=== PATIENT | male | born 1990 | race Caucasian/White ===

== ENCOUNTER 2022-05-25 00:58 | Emergency (ER) | payer BC, SELFPAY ==
[2022-05-25 01:02] VITALS: BP 166/99; PULSE 60; RESP 16; TEMP 37.1; O2SAT 100
--- NOTE | 2022-05-25 01:14 | ED.GENADUL_ITS ---
Discharge Plan Disposition Patient Disposition: Home Discharge Details Clinical Impression: Dental implant pain ED Provider: Tyshawn Demarco Discharge Instructions Additional Instructions: At this time the CAT scan of your head shows no tumor, mass, abscess or other significant abnormality. As we discussed I am concerned that there may be a component of your nerve being irritated from where the original root canal was. I cannot see any other evidence of significant cause on exam otherwise. Please continue to take the antibiotic as directed. Please follow-up closely with your dentist tomorrow. Please continue to take Tylenol and Motrin as needed. You can take 1000 mg of Tylenol every 6 hours and 800 mg of Motrin every 6 hours as needed for pain. If you notice any worsening of your symptoms, or any new symptoms such as vomiting, diarrhea, fever, chills, shortness of breath, chest pain, numbness, weakness, or fainting , please return immediately to the emergency department for reevaluation. Please follow up with your primary care provider as soon as possible for reassessment and reevaluation. As always, it was a pleasure participating in your medical care today. Medical Decision Making This is a 32-year-old male with no significant past medical history who presents today for right upper dental pain. Patient was seen a week ago by his dentist. He has a history of a filling and a root canal in that area. Images were performed and they did not see any significant abnormalities. They started the patient on amoxicillin and he has been taking this as directed. He went to see an urgent care as the pain continued a few days ago. Urgent care sent no other significant abnormalities. Patient continues to have symptoms in that area. He has been taking Tylenol and Motrin without any significant improvement. He denies any numbness or tingling. No vision changes, no atypical smells, no history of cancer or tumors. Pain is improved by taking sips of cool water on his teeth. Pain is not worsened with chewing. He denies fever or chills. He denies neck pain. No trauma. No other complaints at this time. Exam demonstrates a well-appearing male. He is taking regular sips of cold water as this helps with the pain. No evidence of severe dental caries. He does have a And a root canal in his right upper posterior molar which is visible. No evidence of periapical abscess. No significant tenderness there. Mild tenderness on palpation of the right TMJ, but certainly not severe. No evidence of deformity otherwise. I am uncertain as to what the exact etiology is, however at this time symptoms appear to be inconsistent with brain tumor clinically. No headache otherwise, vision changes, smell changes or other abnormalities. I suspect the most likely etiology is an abnormality with his previous root canal with potential infection. We will perform dental block after discussing risks and benefits. Patient does request this. Ear demonstrates no evidence of cholesteatoma, infection or other normality. Patient had no improvement with dental block. We did get a CT scan of the head to rule out mass or other abnormality. CT scan is negative. I suspect there is still nerve irritation at the site of the previous root canal. We have recommended doses to maximize Tylenol and Motrin use. At this time exam shows no other abnormalities whatsoever concerning for an acute life-threatening etiology. No clinical evidence of meningitis. Patient will be discharged home. We will give a small dose of [place] to go. Recommend close follow-up with dentist in the morning. I have extensively reviewed the treatment plan and discharge instructions with the patient. I have addressed all patient concerns at this time. The patient was made aware of what symptoms to monitor for that would warrant a return to the emergency department. Discussed the plan with the patient, they demonstrate verbal understanding and agreement with our assessment and plan at this time. The documentation in this chart was dictated using [employer] dictation software. Please excuse any dictation errors. FINDINGS: Brain: Normal. No hemorrhage. Unremarkable white matter. No mass effect. Cerebral ventricles: No ventriculomegaly. Paranasal sinuses: Visualized sinuses are unremarkable. No fluid levels. Mastoid air cells: Visualized mastoid air cells are well aerated. Bones/joints: Unremarkable. No acute fracture. Soft tissues: Unremarkable. IMPRESSION: No acute intracranial abnormality. Orbital cavities: Orbits are normal. Globes are unremarkable. Bones/joints: No acute fracture. Paranasal sinuses: Normal. No air-fluid levels. Soft tissues: Unremarkable. IMPRESSION: No acute findings. Thank you for allowing us to participate in the care of your patient. Dictated and Authenticated by: Ryan Conroy MD 05/25/2022 2:06 AM Eastern Time ([place] & [place]) HPI General Date/Time Provider Initiated Documentation: 05/25/22 01:01 . HPI Narrative: This is a 32-year-old male with no significant past medical history who presents today for right upper dental pain. Patient was seen a week ago by his dentist. He has a history of a filling and a root canal in that area. Images were performed and they did not see any significant abnormalities. They started the patient on amoxicillin and he has been taking this as directed. He went to see an urgent care as the pain continued a few days ago. Urgent care sent no other significant abnormalities. Patient continues to have symptoms in that area. He has been taking Tylenol and Motrin without any significant improvement. He denies any numbness or tingling. No vision changes, no atypic al smells, no history of cancer or tumors. Pain is improved by taking sips of cool water on his teeth. Pain is not worsened with chewing. He denies fever or chills. He denies neck pain. No trauma. No other complaints at this time. Related Data Allergies Allergy/AdvReac Type Severity Reaction Status Date / Time No Known Allergies Allergy Unverified 05/28/20 10:04 General Stated Complaint: FacialProb JUDE: 4 Review of Systems All systems reviewed & are unremarkable except as noted in HPI and below PFSH All Active Problems (Updated 05/25/22 @ 01:20 by Tyshawn Demarco DO) Dental implant pain (Acute) Family History Mother Stroke Father Cancer BLADDER Brother No problems noted. Grandfather Cancer PROSTATE Grandfather Cancer Grandmother No problems noted. Grandmother Alzheimer disease Family History Protein C deficiency Social History Smoking/Tobacco Use Status: Former Tobacco Use Quit Date: 10/27/21 Smoking risk assessment performed?: Yes Alcohol Intake: current Alcohol Intake frequency: 0-2 drinks per day Alcohol type: beer and hard liquor Drug use: Occasionally Substance use type: marijuana Do you feel safe at home: Yes Do you feel safe in your relationship?: Yes Exam Narrative Exam Narrative: 1.Const: Well-nourished, Well-developed, appearing stated age 2.Eyes: PERRL, no conjunctival injection, and symmetrical lids. 3.ENT: Atraumatic external nose and ears. Moist MM. Neck: Symmetric, trachea midline, No thyromegaly. No evidence of severe dental caries. There is a On his right upper posterior molar. No periapical abscess. Patient does describe tenderness over the right TMJ, however no significant abnormalities noted on there on exam. No facial swelling. No facial droop. No palpable tender temporal artery. 4.CVS: +S1/S2, No murmurs or gallops. Peripheral pulses 2+ and equal in all extremities. Brisk capillary refill in all extremities. 5.RESP: Unlabored respiratory effort. Clear to auscultation bilaterally. No wheezes rales or rhonchi 6.GI: Soft, Nontender/Nondistended, No hepatosplenomegaly. No guarding or rebound. 7.MSK: Normocephalic/Atraumatic, Extremities w/o deformity or ttp No cyanosis or clubbing, Normal movement of all extremities 8.Skin: Warm, Dry. No rashes or lesions. 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 Sensation grossly intact, no focal neurologic deficits. 10.Psych: (AAO) x3. Appropriate mood and affect Course Vital Signs Vital signs: Vital Signs Temperature 37.1 C 05/25/22 01:02 Pulse 60 05/25/22 01:02 Respiratory Rate 16 05/25/22 01:02 Blood Pressure 166/99 H 05/25/22 01:02 Pulse Oximetry 100 05/25/22 01:02 Temperature 37.1 C 05/25/22 01:02 Temperature Source Temporal Artery Scan 05/25/22 01:02 Pulse 60 05/25/22 01:02 Respiratory Rate 16 05/25/22 01:02 Respiratory Effort Normal, Non-Labored 05/25/22 01:10 Blood Pressure 166/99 H 05/25/22 01:02 Blood Pressure Position Sitting 05/25/22 01:02 Pulse Oximetry 100 05/25/22 01:02 Oxygen Delivery Method Room Air 05/25/22 01:02 Oxygen Flow Rate 0 05/25/22 01:02 Pain Level 6 05/25/22 01:02 Procedures Nerve Block Nerve Block 1: Time out performed: Yes Local Anesthetic: Bupivicaine 0.5% Amount of anesthesia used (mL): 6 Side: right Intraoral Nerve Block: superior alveolar Procedure Successful: Yes Patient Tolerated Procedure: well and no complications Complications: none PAWSS Have you Been Recently Intoxicated or Drunk Within the Last 30 days?: No Have you Ever Experienced Previous Episodes of Alcohol Withdrawal?: No Have you ever Experienced Withdrawal Seizures?: No Have you ever Experienced Delirium Tremens(DT)s?: No Have you ever undergone Alcohol Rehabilitation Treatment (i.e, inpt ot outpatient treatment programs)?: No Have you ever Experienced Blackouts?: No Have you ever Combined Alcohol with other Downers within the last 90 days?: No Have you ever Combined Alcohol with any other Substance of Abuse during the last 90 days?: No Positive Blood Alcohol level on Presentation? [PCS.BAL]: No Evidence of Increased Autonomic Activity (i.e. HR>120, tremor, sweating, agitation, nausea)?: No Result: 0
[2022-05-25] MEDS: Bupivacaine 0.5% Pres-Free 30 ML VIAL (01:22)
--- NOTE | 2022-05-25 01:30 | DI.CT_ITS ---
Exam(s) CT HEAD FACIAL WO EXAM: CT HEAD FACIAL WO CLINICAL HISTORY: right upper jaw pain, r/o mass/abscess. TECHNIQUE: Imaging Protocol: Axial computed tomography images with coronal and sagittal reformatted images were created and reviewed COMPARISON: No exams were available for comparison FINDINGS: CT Head: Ventricles and Extra axial spaces: Normal in size and morphology for the patient's age. Hemorrhage: None. Cerebral parenchyma: Normal. Midline shift: None. Brainstem/Cerebellum: Normal. Calvarium: Normal. Visualized Paranasal sinuses/Mastoids: Clear. Soft Tissues: Unremarkable. CT Face: Facial Bones: No definite fracture is noted in facial bones. Sinuses and Mastoids: Unremarkable. Globes, extraocular muscles, optic nerves and retrobulbar fat: Normal. Upper aerodigestive tract: Normal. Mandible and bilateral temporomandibular joints: Normal. Soft tissues: Normal. IMPRESSION: 1. No acute intracranial process. 2. No acute facial fracture. 3. No acute abnormality. RADIATION DOSE DELIVERED: 1,664.35mGy.cm Total DLP DATA REPOSITORY: All CT scans at this facility are submitted to the National Radiology Data Registry (NRDR) Dose Index Registry (DIR) with the [employer] (ACR). RADIATION OPTIMIZATION: All CT scans at this facility use at least one of these dose optimization te chniques: automated exposure control; mA and/or kV adjustment per patient size (includes targeted exa ms where dose is matched to clinical indication); or iterative reconstruction.
[2022-05-25] MEDS: Ketorolac 30 MG/ML VIAL IM (01:34)
--- NOTE | 2022-05-25 02:08 | DI.VRAD_ITS ---
PROCEDURE INFORMATION: Exam: CT Head Without Contrast Exam date and time: 05/25/2022 1:37 AM Age: 32 years old Clinical indication: Headache; Other: R sided above ear; Patient HX: Right sided head/ear/jaw pain TECHNIQUE: Imaging protocol: Computed tomography of the head without contrast. Radiation optimization: All CT scans at this facility use at least one of these dose optimization techniques: automated exposure control; mA and/or kV adjustment per patient size (includes targeted exams where dose is matched to clinical indication); or iterative reconstruction. COMPARISON: No relevant prior studies available. FINDINGS: Brain: Normal. No hemorrhage. Unremarkable white matter. No mass effect. Cerebral ventricles: No ventriculomegaly. Paranasal sinuses: Visualized sinuses are unremarkable. No fluid levels. Mastoid air cells: Visualized mastoid air cells are well aerated. Bones/joints: Unremarkable. No acute fracture. Soft tissues: Unremarkable. IMPRESSION: No acute intracranial abnormality. PROCEDURE INFORMATION: Exam: CT Maxillofacial Without Contrast Exam date and time: 05/25/2022 1:37 AM Age: 32 years old Clinical indication: Headache; Other: R sided above ear; Patient HX: Right sided head/ear/jaw pain TECHNIQUE: Imaging protocol: Computed tomography of the face without contrast. Radiation optimization: All CT scans at this facility use at least one of these dose optimization techniques: automated exposure control; mA and/or kV adjustment per patient size (includes targeted exams where dose is matched to clinical indication); or iterative reconstruction. COMPARISON: No relevant prior studies available. FINDINGS: Orbital cavities: Orbits are normal. Globes are unremarkable. Bones/joints: No acute fracture. Paranasal sinuses: Normal. No air-fluid levels. Soft tissues: Unremarkable. IMPRESSION: No acute findings. Dictated and Authenticated by: Ryan Conroy MD. Ordering:CHELSEA Villagran MD
== END 2022-05-25 02:33 | disposition home or self-care (01) ==
LOC: ER 02:34
PROVIDERS: Emergency Provider Student in an Organized Health Care Education/Training Program
DX: K08.89 Other specified disorders of teeth and supporting structures (principal); H92.01 Otalgia, right ear
CPT/HCPCS: 64400; 96372; 99284; 70450; 70486; J1885